=== PATIENT | male | born 1995 | race Caucasian/White ===

== ENCOUNTER 2022-04-28 08:03 | Day surgery (SDC) | payer BC ==
[2022-04-28] MEDS ORDERED: Propofol 200 MG/20 ML SDV IV ONE (08:04)
[2022-04-28] MEDS ORDERED: Glycopyrrolate 0.2 MG/ML SDV IVPUSH ONE (08:04)
[2022-04-28] MEDS ORDERED: Ondansetron 4 MG/2 ML SDV IV ONE (08:04)
[2022-04-28] MEDS: Sodium Chloride 0.9% 10 ML Syringe FLUSH PRN (08:25)
[2022-04-28] MEDS: Lactated Ringers 1,000 ML IV SCH (08:30)
[2022-04-28] MEDS ORDERED: Methylene Blue 50 MG/10 ML Ampule ONE (08:39)
[2022-04-28] MEDS ORDERED: Bupivacaine 0.5%/EPINEPHrine 1:200,000 50 ML MDV ONE (08:39)
[2022-04-28] MEDS ORDERED: Midazolam 1 MG/ML 2 ML SDV ONE (08:55)
[2022-04-28] MEDS ORDERED: fentaNYL 100 MCG/2 ML SDV ONE (08:55)
[2022-04-28] MEDS ORDERED: ceFAZolin 1 GM Vial ONE (08:55)
[2022-04-28] MEDS ORDERED: Ketamine 200 MG/20 ML MDV ONE (08:56)
[2022-04-28] MEDS ORDERED: Propofol 200 MG/20 ML SDV ONE ×2 (08:56→09:55)
[2022-04-28] MEDS ORDERED: Lactated Ringers 1,000 ML ONE (09:31)
[2022-04-28] MEDS: Bupivacaine 0.5%/EPINEPHrine 1:200,000 50 ML MDV INFILT ONE (09:38)
[2022-04-28] MEDS ORDERED: Ketorolac 30 MG/ML SDV ONE (10:18)
== END 2022-04-28 12:22 | disposition home or self-care (01) ==
LOC: KA.SDS 08:03
PROVIDERS: ATTEND Surgery
DX: L05.91 Pilonidal cyst without abscess (principal); Z79.899 Other long term (current) drug therapy
CPT/HCPCS: J0690; J1885; J2250; J2405; J2704; J3010; J3490; J7120